=== PATIENT | female | born 1950 | race Caucasian/White ===

== ENCOUNTER → 2017-07-06 | Outpatient (CLI) | payer MEDICARE, MEDICAID ==
[~2017-07-06] MED LIST: ACYCLOVIR 400400 M1 PO; AVAPRO; BENTYL 20 MG TA20 M1 PO; CELEBREX50 MG PO; CIPROFLOXACIN500 M1 PO; CIPROFLOXACIN500 M3 PO; COZAAR 25 MG TA25 M2 PO; DIFLUCAN150 MG PO; FLAGYL 250 MG250 MG PO; FLAGYL500 MG PO; GLUCOPHAGE500 MG PO; LIDODERM 5%1 PATCH TOP; MEDROL DOSPAK21 TA1 PO; NEURONTIN 300300 M1 PO; NORCO 5-325 TA1 EAC1 PO; NORCO 5-325 TA1 EACH PO; NORCO 7.5-3251 EACH PO; OMEPRAZOLE; OMEPRAZOLE 20 M20 M1 PO; PHENERGAN 25 MG25 M1; RELAFEN500 MG PO; ROBAXIN 750 MG750 M1 PO; SILVADENE20 GM TP; TRAMADOL 50 MG50 MG PO; ULTRAM 50MG TAB50 MG PO; VISTARIL 25 MG25 M1 OR; ZOFRAN 4 MG ORAL4 MG PO; ZOFRAN4 MG PO; [UNRECOGNIZED DRUG - OTHER]; [UNRECOGNIZED DRUG - REMARK]
== END ==
LOC: M.RAD 05-24 16:58
DX: Z12.31 Encounter for screening mammogram for malignant neoplasm of breast (principal); M85.89 Other specified disorders of bone density and structure, multiple sites; Z78.0 Asymptomatic menopausal state; I25.10 Atherosclerotic heart disease of native coronary artery without angina pectoris

== ENCOUNTER 2017-09-23 09:43 | Emergency (ER) | payer MEDICARE, MEDICAID ==
[~2017-09-23] VITALS: Ht 162.6 cm; Wt 86.2 kg
[~2017-09-23 09:43] MED LIST changes: -PHENERGAN 25 MG25 M1; -ROBAXIN 750 MG750 M1 PO
[2017-09-23 10:43] LABS: ABSOLUTE EOSINOPHILS 0.1 thou/uL (0.0-0.7); ABSOLUTE LYMPHOCYTES 1.2 thou/uL (0.8-5.3); ABSOLUTE MONOCYTES 0.3 thou/uL (0.0-1.2); ABSOLUTE NEUTROPHILS 1.6 thou/uL (1.6-8.1); BASOPHILS 1.5 %; EOSINOPHILS 2.6 %; HEMATOCRIT 23.1 % (37.0-47.0); LYMPHOCYTES 38.6 %; MCH 18.8 pg (26.0-34.0); MCHC 28.6 g/dL (28.0-37.0); MONOCYTES 8.4 %; MPV 9.2 fl. (7.2-11.1); NUCLEATED RBCS 0 /100WBC; PLATELET COUNT* 142 thou/uL (150-400); POLYS 48.9 %; RBC 3.51 mil/uL (4.20-5.00); RDW-CV 19.8 % (10.5-14.5); WBC 3.2 thou/uL (4.0-11.0)
[2017-09-23 10:49] LABS: HEMOGLOBIN 6.6 gm/dL (12.0-15.0)
[2017-09-23 10:51] LABS: CALCIUM 8.5 mg/dL (8.5-10.1); CREATININE 0.7 mg/dL (0.6-1.3); POTASSIUM 4.1 mmol/L (3.5-5.1)
[2017-09-23 10:56] LABS: ALBUMIN 2.9 g/dL (3.4-5.0); TOTAL BILIRUBIN 0.8 mg/dL (<0.1-1.0); TOTAL PROTEIN 6.3 g/dL (6.4-8.2)
[2017-09-23 11:20] LABS: ANISOCYTOSIS 2+; HYPOCHROMASIA 2+; MICROCYTES 2+; OVALOCYTES 1+; PLATELET ESTIMATE ADEQUATE
[2017-09-23 11:21] LABS: POIKILOCYTOSIS 2+; TARGET CELLS Occasional
[2017-09-23 12:40] VITALS: BP 143/78
== END 2017-09-23 12:43 | disposition home or self-care (01) ==
LOC: M.ERS 09:43
PROVIDERS: Physician Assistant
DX: D64.9 Anemia, unspecified (principal); E11.9 Type 2 diabetes mellitus without complications; Z90.49 Acquired absence of other specified parts of digestive tract; Z86.19 Personal history of other infectious and parasitic diseases

== ENCOUNTER → 2017-09-26 | Outpatient (CLI) | payer MEDICARE, MEDICAID ==
[~2017-09-26] MED LIST changes: +PHENERGAN 25 MG25 M1; +ROBAXIN 750 MG750 M1 PO
[2017-09-26 09:44] VITALS: BP 146/82; BP 148/73; BP 158/88
[2017-09-26 11:42] VITALS: BP 142/68; BP 154/78; BP 158/88; BP 176/82
--- NOTE | 2017-09-26 14:44 | NUR ---
ARRIVED AMBULATORY. MADE SELF COMFORTABLE IN RELCINER. DENIES BEING SYMPTOMATIC. 2 UNITS PRBC TRANSFUSION COMPLETED AND TOLERATED WELL. DENIES QUESTIONS OR NEEDS AT DISCHARGE.
== END ==
LOC: M.LAB 09-23 09:00 → M.INFUS 09-23 09:00 → EDSTATUS 09-23 09:00 → M.INFUS 07:54
DX: D64.9 Anemia, unspecified (principal)

== ENCOUNTER 2017-10-03 10:28 | Emergency (ER) | payer MEDICARE, MEDICAID ==
[~2017-10-03] VITALS: Ht 165.1 cm; Wt 86.2 kg
[~2017-10-03 10:28] MED LIST changes: -PHENERGAN 25 MG25 M1; -ROBAXIN 750 MG750 M1 PO
[2017-10-03 10:39] LABS: URINE BILIRUBIN NEGATIVE (Negative); URINE BLOOD TRACE (Negative); URINE CLARITY CLEAR; URINE COLOR YELLOW; URINE GLUCOSE-RANDOM NEGATIVE (Negative); URINE KETONES NEGATIVE (Negative); URINE LEUKOCYTES-REFLEX 1+ (Negative); URINE NITRITE-REFLEX NEGATIVE (Negative); URINE PROTEIN NEGATIVE (Negative)
[2017-10-03] MEDS ORDERED: PHENERGAN 25 MG25 M1 (10:40)
[2017-10-03 10:48] LABS: BACTERIA-REFLEX 1-9 Few /HPF (None Seen); CASTS None Seen /LPF (None Seen); CRYSTALS None Seen /LPF (None Seen); MUCUS 0-3 Light strn/LPF (None Seen); SQUAMOUS 4-10 Moderate /LPF (0-3); URINE RBC 0-2 Rare /HPF (0-2); URINE WBC-REFLEX 0-5 Rare /HPF (0-5)
[2017-10-03 11:16] LABS: ABSOLUTE EOSINOPHILS 0.1 thou/uL (0.0-0.7); ABSOLUTE MONOCYTES 0.2 thou/uL (0.0-1.2); ABSOLUTE NEUTROPHILS 1.4 thou/uL (1.6-8.1); BASOPHILS 1.6 %; HEMATOCRIT 29.7 % (37.0-47.0); HEMOGLOBIN 9.2 gm/dL (12.0-15.0); LYMPHOCYTES 36.1 %; MCH 21.9 pg (26.0-34.0); MCHC 30.9 g/dL (28.0-37.0); MPV 8.6 fl. (7.2-11.1); NUCLEATED RBCS 0 /100WBC; PLATELET COUNT* 140 thou/uL (150-400); POLYS 51.3 %; RBC 4.19 mil/uL (4.20-5.00); RDW-CV 26.2 % (10.5-14.5); WBC 2.7 thou/uL (4.0-11.0)
[2017-10-03 11:27] LABS: ANION GAP 2 mmol/L (7-16); BUN 5 mg/dL (7-18); CALCIUM 8.7 mg/dL (8.5-10.1); CHLORIDE 103 mmol/L (98-107); CO2 33 mmol/L (21-32); CREATININE 0.6 mg/dL (0.6-1.3); GLUCOSE 121 mg/dL (70-99); POTASSIUM 4.1 mmol/L (3.5-5.1); SODIUM 138 mmol/L (136-145)
[2017-10-03 11:34] LABS: ALBUMIN 2.9 g/dL (3.4-5.0); ALKALINE PHOSPHATASE 152 U/L (46-116); SGOT 60 U/L (15-37); SGPT 45 U/L (30-65); TOTAL BILIRUBIN 1.3 mg/dL (<0.1-1.0); TOTAL PROTEIN 6.3 g/dL (6.4-8.2); TROPONIN-I LEVEL <0.06 ng/mL (<0.06)
[2017-10-03 11:55] LABS: HYPOCHROMASIA 3+; MICROCYTES 2+; PLATELET ESTIMATE ADEQUATE
[2017-10-03 11:56] LABS: ANISOCYTOSIS 3+; OVALOCYTES 2+
--- NOTE | 2017-10-03 15:00 | EKG ---
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: GAGE : 1950 Requested By: Leslie Lamar Order Number: [id number] MD: Krish Alvarado Measurements Intervals [place] Rate: 83 P: 23 FL: 163 QRS: 14 QRSD: 88 T: 24 QT: 381 QTc: 448 Interpretive Statements Sinus rhythm Compared to ECG 10/09/2016 15:34:51 Myocardial infarct finding no longer present T-wave abnormality no longer present Electronically Signed On 10-03-2017 15:00:42 CDT by Krish Alvarado [email or web address] <ELECTRONICALLY SIGNED> By: Krish Alvarado MD, [facility] 10/03/17 1500 1054 1054 Krish Alvarado MD, FACC /EPI
[2017-10-03] MEDS ORDERED: ROBAXIN 750 MG750 M1 PO (15:39)
[2017-10-03 15:49] VITALS: BP 152/71
== END 2017-10-03 15:50 | disposition home or self-care (01) ==
LOC: M.ERS 10:28
PROVIDERS: Nurse Practitioner Family
DX: S29.012A Strain of muscle and tendon of back wall of thorax, initial encounter (principal); E11.9 Type 2 diabetes mellitus without complications; Z86.2 Personal history of diseases of the blood and blood-forming organs and certain disorders involving the immune mechanism; Z90.49 Acquired absence of other specified parts of digestive tract; X58.XXXA Exposure to other specified factors, initial encounter; Y93.89 Activity, other specified; Y92.89 Other specified places as the place of occurrence of the external cause; Y99.8 Other external cause status

== ENCOUNTER → 2017-10-12 | Outpatient (CLI) | payer MEDICARE, MEDICAID ==
[~2017-10-12] MED LIST changes: +PHENERGAN 25 MG25 M1; +ROBAXIN 750 MG750 M1 PO
[2017-10-12 12:36] LABS: ALBUMIN 2.7 g/dL (3.4-5.0); CALCIUM 8.1 mg/dL (8.5-10.1); CREATININE 0.6 mg/dL (0.6-1.3); TOTAL BILIRUBIN 1.8 mg/dL (<0.1-1.0); TOTAL PROTEIN 5.8 g/dL (6.4-8.2)
== END ==
LOC: M.LAB 11:58 → M.CT 13:30
PROVIDERS: Family Medicine
DX: K57.30 Diverticulosis of large intestine without perforation or abscess without bleeding (principal); D25.9 Leiomyoma of uterus, unspecified; K74.69 Other cirrhosis of liver; R18.8 Other ascites

== ENCOUNTER → 2017-10-18 | Outpatient (CLI) | payer MEDICARE, MEDICAID | LOC: M.CT 10:21 | DX: I25.10 Atherosclerotic heart disease of native coronary artery without angina pectoris (principal); J98.11 Atelectasis; E11.9 Type 2 diabetes mellitus without complications ==

== ENCOUNTER → 2017-10-24 | Outpatient (CLI) | payer MEDICARE, MEDICAID | LOC: M.ULTRA 09:09 | DX: K44.9 Diaphragmatic hernia without obstruction or gangrene (principal); E11.9 Type 2 diabetes mellitus without complications ==

== ENCOUNTER 2017-11-11 21:47 | Emergency (ER) | payer MEDICARE, MEDICAID ==
[~2017-11-11] VITALS: Ht 165.1 cm; Wt 88.5 kg
[2017-11-11] MEDS ORDERED: NORCO 5-325 TA1 EACH PO (23:11)
[2017-11-11 23:22] VITALS: BP 159/64
== END 2017-11-11 23:29 | disposition home or self-care (01) ==
LOC: M.ERS 21:47
DX: S20.212A Contusion of left front wall of thorax, initial encounter (principal); E11.9 Type 2 diabetes mellitus without complications; Z86.2 Personal history of diseases of the blood and blood-forming organs and certain disorders involving the immune mechanism; Z90.49 Acquired absence of other specified parts of digestive tract; W18.39XA Other fall on same level, initial encounter; Y93.89 Activity, other specified; Y92.89 Other specified places as the place of occurrence of the external cause; Y99.8 Other external cause status

== ENCOUNTER 2017-12-31 13:29 | Emergency (ER) | payer MEDICARE, MEDICAID ==
[~2017-12-31] VITALS: Ht 165.1 cm; Wt 86.2 kg
[2017-12-31 14:09] LABS: ABSOLUTE LYMPHOCYTES 0.9 thou/uL (0.8-5.3); ABSOLUTE MONOCYTES 0.3 thou/uL (0.0-1.2); ABSOLUTE NEUTROPHILS 3.1 thou/uL (1.6-8.1); BASOPHILS 0.7 %; EOSINOPHILS 0.3 %; HEMATOCRIT 26.9 % (37.0-47.0); HEMOGLOBIN 8.3 gm/dL (12.0-15.0); LYMPHOCYTES 20.1 %; MCHC 30.7 g/dL (28.0-37.0); MCV 71.7 fL (80.0-100.0); MONOCYTES 6.7 %; MPV 9.5 fl. (7.2-11.1); NUCLEATED RBCS 0 /100WBC; PLATELET COUNT* 141 thou/uL (150-400); POLYS 72.2 %; RBC 3.75 mil/uL (4.20-5.00); RDW-CV 23.2 % (10.5-14.5); WBC 4.3 thou/uL (4.0-11.0)
[2017-12-31 14:14] LABS: ANION GAP 7 mmol/L (7-16); BUN 7 mg/dL (7-18); CHLORIDE 100 mmol/L (98-107); CO2 26 mmol/L (21-32); CREATININE 0.6 mg/dL (0.6-1.3); GLUCOSE 138 mg/dL (70-99); POTASSIUM 4.2 mmol/L (3.5-5.1); SODIUM 133 mmol/L (136-145)
[2017-12-31 14:22] LABS: ALBUMIN 2.8 g/dL (3.4-5.0); ALKALINE PHOSPHATASE 120 U/L (46-116); SGOT 55 U/L (15-37); SGPT 44 U/L (30-65); TOTAL BILIRUBIN 0.8 mg/dL (<0.1-1.0); TROPONIN-I LEVEL <0.06 ng/mL (<0.06)
[2017-12-31 14:29] LABS: PLATELET ESTIMATE DECREASED
[2017-12-31 14:30] LABS: ANISOCYTOSIS 2+; HYPOCHROMASIA 2+; MICROCYTES 2+
[2017-12-31] MEDS ORDERED: NORCO 5-325 TA1 EACH PO (16:11)
[2017-12-31 16:26] VITALS: BP 138/64
--- NOTE | 2018-01-02 10:03 | EKG ---
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: [place] : 1950 Requested By: Annalisa Almaguer Order Number: [id number] MD: Ford Jimenez Measurements Intervals [place] Rate: 88 P: 41 VT: 159 QRS: 12 QRSD: 91 T: 27 QT: 379 QTc: 459 Interpretive Statements Sinus rhythm septal infarct, old Baseline wander in lead(s) V1,V6 Compared to ECG 10/03/2017 10:54:01 Myocardial infarct finding still present Electronically Signed On 01-02-2018 10:02:57 RESIDENTIAL THERAPIST by Ford Jimenez [email or web address] <ELECTRONICALLY SIGNED> By: Ford Jimenez MD, FACC 01/02/18 1002 1404 1404 Ford Jimenez MD, [facility] /EPI
== END 2017-12-31 16:26 | disposition home or self-care (01) ==
LOC: M.ERS 13:29
PROVIDERS: Physician Assistant
DX: R10.32 Left lower quadrant pain (principal); D64.9 Anemia, unspecified; E11.9 Type 2 diabetes mellitus without complications; Z90.49 Acquired absence of other specified parts of digestive tract

== ENCOUNTER 2018-07-05 08:36 | Emergency (ER) | payer MEDICARE, MEDICAID ==
[~2018-07-05] VITALS: Ht 165.1 cm; Wt 88.5 kg
[2018-07-05] MEDS ORDERED: PHENERGAN 25 MG25 M1 PO (08:46)
[2018-07-05 09:13] LABS: ABSOLUTE EOSINOPHILS 0.1 thou/uL (0.0-0.7); ABSOLUTE LYMPHOCYTES 1.2 thou/uL (0.8-5.3); ABSOLUTE MONOCYTES 0.3 thou/uL (0.0-1.2); ABSOLUTE NEUTROPHILS 1.2 thou/uL (1.6-8.1); BASOPHILS 1.2 %; EOSINOPHILS 2.1 %; HEMATOCRIT 20.9 % (37.0-47.0); LYMPHOCYTES 42.6 %; MCH 19.5 pg (26.0-34.0); MCHC 29.2 g/dL (28.0-37.0); MCV 66.7 fL (80.0-100.0); MONOCYTES 10.2 %; MPV 8.2 fl. (7.2-11.1); NUCLEATED RBCS 0 /100WBC; PLATELET COUNT* 148 thou/uL (150-400); POLYS 43.9 %; RBC 3.13 mil/uL (4.20-5.00); RDW-CV 20.4 % (10.5-14.5); WBC 2.8 thou/uL (4.0-11.0)
[2018-07-05 09:20] LABS: HEMOGLOBIN 6.1 gm/dL (12.0-15.0)
[2018-07-05 09:22] LABS: ANION GAP 8 mmol/L (7-16); BUN 7 mg/dL (7-18); CALCIUM 8.5 mg/dL (8.5-10.1); CHLORIDE 104 mmol/L (98-107); CO2 27 mmol/L (21-32); CREATININE 0.6 mg/dL (0.6-1.3); GLUCOSE 125 mg/dL (70-99); POTASSIUM 4.1 mmol/L (3.5-5.1); SODIUM 139 mmol/L (136-145)
[2018-07-05 09:31] LABS: ALBUMIN 2.8 g/dL (3.4-5.0); ALKALINE PHOSPHATASE 125 U/L (46-116); SGOT 35 U/L (15-37); SGPT 31 U/L (30-65); TOTAL BILIRUBIN 0.6 mg/dL (<0.1-1.0); TROPONIN-I LEVEL <0.06 ng/mL (<0.06)
[2018-07-05 09:59] LABS: URINE BILIRUBIN NEGATIVE (Negative); URINE BLOOD TRACE (Negative); URINE CLARITY CLEAR; URINE COLOR YELLOW; URINE GLUCOSE-RANDOM NEGATIVE (Negative); URINE KETONES NEGATIVE (Negative); URINE NITRITE-REFLEX NEGATIVE (Negative); URINE PROTEIN NEGATIVE (Negative); URINE UROBILINOGEN 0.2 E.U./dl (0.2-1.0)
[2018-07-05 10:02] LABS: URINE LEUKOCYTES-REFLEX 2+ (Negative)
[2018-07-05 10:06] LABS: ANISOCYTOSIS 3+; HYPOCHROMASIA 2+
[2018-07-05 10:08] LABS: BACTERIA-REFLEX 1-9 Few /HPF (None Seen); CASTS None Seen /LPF (None Seen); CRYSTALS None Seen /LPF (None Seen); MUCUS None Seen strn/LPF (None Seen); SQUAMOUS >10 Many /LPF (0-3); URINE RBC 0-2 Rare /HPF (0-2); URINE WBC-REFLEX 6-15 Few /HPF (0-5)
[2018-07-05 10:22] LABS: APTT 24.9 Seconds (25.0-31.3); INR 1.2; PROTIME 11.9 Seconds (9.20-11.50)
--- NOTE | 2018-07-05 14:41 | EKG ---
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
[2018-07-05 14:58] LABS: HEMATOCRIT 23.5 % (37.0-47.0); HEMOGLOBIN 7.2 gm/dL (12.0-15.0)
[2018-07-05 16:50] VITALS: BP 154/78
== END 2018-07-05 16:52 | disposition home or self-care (01) ==
LOC: M.ERS 08:36
PROVIDERS: Personal Emergency Response Attendant
DX: D64.9 Anemia, unspecified (principal); D61.818 Other pancytopenia; E11.9 Type 2 diabetes mellitus without complications; K74.60 Unspecified cirrhosis of liver; Z90.49 Acquired absence of other specified parts of digestive tract

== ENCOUNTER → 2018-07-12 | Outpatient (CLI) | payer MEDICARE, MEDICAID ==
[~2018-07-12] MED LIST changes: +PHENERGAN 25 MG25 M1 PO
== END ==
LOC: M.ULTRA 07-04 12:41
DX: E04.1 Nontoxic single thyroid nodule (principal); R10.9 Unspecified abdominal pain; Z90.49 Acquired absence of other specified parts of digestive tract

== ENCOUNTER 2018-07-27 11:33 | Emergency (ER) | payer MEDICARE, MEDICAID ==
[~2018-07-27] VITALS: Ht 165.1 cm; Wt 89.8 kg
[2018-07-27 12:41] LABS: ABSOLUTE EOSINOPHILS 0.1 thou/uL (0.0-0.7); ABSOLUTE LYMPHOCYTES 0.5 thou/uL (0.8-5.3); ABSOLUTE MONOCYTES 0.3 thou/uL (0.0-1.2); ABSOLUTE NEUTROPHILS 1.8 thou/uL (1.6-8.1); BASOPHILS 1.2 %; EOSINOPHILS 2.1 %; HEMATOCRIT 30.2 % (37.0-47.0); HEMOGLOBIN 9.1 gm/dL (12.0-15.0); LYMPHOCYTES 19.8 %; MCH 23.3 pg (26.0-34.0); MCHC 30.3 g/dL (28.0-37.0); MCV 76.9 fL (80.0-100.0); MONOCYTES 9.4 %; MPV 8.6 fl. (7.2-11.1); NUCLEATED RBCS 0 /100WBC; PLATELET COUNT* 126 thou/uL (150-400); POLYS 67.5 %; RBC 3.93 mil/uL (4.20-5.00); RDW-CV 33.5 % (10.5-14.5); WBC 2.7 thou/uL (4.0-11.0)
[2018-07-27 12:51] LABS: URINE BLOOD NEGATIVE (Negative); URINE CLARITY CLEAR; URINE COLOR DARK YELLOW; URINE GLUCOSE-RANDOM TRACE (Negative); URINE KETONES NEGATIVE (Negative); URINE NITRITE-REFLEX NEGATIVE (Negative); URINE PROTEIN TRACE (Negative); URINE UROBILINOGEN >= 8.0 E.U./dl (0.2-1.0)
[2018-07-27 12:55] LABS: ICTOTEST (BILI CONFIRMATORY) Negative (Negative); URINE BILIRUBIN 1+ (Negative); URINE LEUKOCYTES-REFLEX 3+ (Negative)
[2018-07-27 12:56] LABS: SQUAMOUS 4-10 Moderate /LPF (0-3)
[2018-07-27 12:57] LABS: BACTERIA-REFLEX 1-9 Few /HPF (None Seen); CASTS None Seen /LPF (None Seen); CRYSTALS None Seen /LPF (None Seen); URINE RBC 0-2 Rare /HPF (0-2); URINE WBC-REFLEX 6-15 Few /HPF (0-5)
[2018-07-27 13:00] LABS: MUCUS 4-6 Moderate strn/LPF (None Seen)
[2018-07-27 13:06] LABS: OVALOCYTES 1+; SCHISTOCYTES 1+; TEARDROPS 1+
[2018-07-27 13:07] LABS: HYPOCHROMASIA 2+; MICROCYTES 2+
[2018-07-27 13:08] LABS: ANION GAP 5 mmol/L (7-16); BUN 7 mg/dL (7-18); CALCIUM 8.7 mg/dL (8.5-10.1); CHLORIDE 103 mmol/L (98-107); CO2 30 mmol/L (21-32); CREATININE 0.7 mg/dL (0.6-1.3); GLUCOSE 169 mg/dL (70-99); PLATELET ESTIMATE DECREASED; POLYCHROMASIA 1+; POTASSIUM 4.3 mmol/L (3.5-5.1); SODIUM 138 mmol/L (136-145)
[2018-07-27 13:17] LABS: ALKALINE PHOSPHATASE 130 U/L (46-116); LIPASE 75 U/L (73-393); SGOT 43 U/L (15-37); SGPT 33 U/L (30-65); TOTAL BILIRUBIN 1.2 mg/dL (<0.1-1.0); TOTAL PROTEIN 6.3 g/dL (6.4-8.2); TROPONIN-I LEVEL <0.06 ng/mL (<0.06)
--- NOTE | 2018-07-27 15:44 | EKG ---
[place] [address] ELECTROCARDIOGRAM REPORT Name: BETHLENYBLAYNE Bowman Room: [facility]#: [id number] Admission: 07/27/18 Attend Phys: Discharge: Date of : 50 Report #: [id number] THIS REPORT FOR: //name// [facility] ED Test Date: 2018-07-27 Test Time: 12:40:10 Pat Name: BLAYNE BRIDGES Department: Room: Gender: F Rn Acute Care: : 1950 Requested By: Lissa Ashley Order Number: [id number] MD: Ford Jimenez Measurements Intervals [place] Rate: 76 P: 15 MT: 167 QRS: 2 QRSD: 92 T: 33 QT: 392 QTc: 441 Interpretive Statements Sinus rhythm Compared to ECG 07/05/2018 09:21:32 No significant changes Electronically Signed On 07-27-2018 15:43:55 CDT by Ford Jimenez [email or web address] <ELECTRONICALLY SIGNED> By: Ford Jimenez MD, [facility] 07/27/18 1543 1240 1240 Ford Jimenez MD, FACC /EPI
[2018-07-27] MEDS ORDERED: CIPRO500 MG PO (15:49)
[2018-07-27] MEDS ORDERED: FLAGYL500 M1 PO (15:49)
[2018-07-27] MEDS ORDERED: HYDROCODONE-AP1 EAC6 PO (15:51)
[2018-07-27] MEDS ORDERED: ONDANSETRON HCL4 M2 PO (15:55)
[2018-07-27 16:11] VITALS: BP 166/67
== END 2018-07-27 16:13 | disposition home or self-care (01) ==
LOC: M.ERS 11:33
PROVIDERS: Nurse Practitioner Family
DX: K57.32 Diverticulitis of large intestine without perforation or abscess without bleeding (principal); I31.3 Pericardial effusion (noninflammatory); E11.9 Type 2 diabetes mellitus without complications; Z90.49 Acquired absence of other specified parts of digestive tract

== ENCOUNTER 2018-08-08 17:02 | Emergency (ER) | payer MEDICARE, MEDICAID ==
[~2018-08-08] VITALS: Ht 165.1 cm; Wt 89.8 kg
[~2018-08-08 17:02] MED LIST changes: +CIPRO500 MG PO; +FLAGYL500 M1 PO; +HYDROCODONE-AP1 EAC6 PO; +ONDANSETRON HCL4 M2 PO
[2018-08-08 17:38] LABS: ABSOLUTE EOSINOPHILS 0.1 thou/uL (0.0-0.7); ABSOLUTE LYMPHOCYTES 0.9 thou/uL (0.8-5.3); ABSOLUTE MONOCYTES 0.5 thou/uL (0.0-1.2); ABSOLUTE NEUTROPHILS 3.4 thou/uL (1.6-8.1); BASOPHILS 0.4 %; EOSINOPHILS 1.1 %; HEMATOCRIT 30.7 % (37.0-47.0); HEMOGLOBIN 9.7 gm/dL (12.0-15.0); LYMPHOCYTES 18.8 %; MCH 26.7 pg (26.0-34.0); MCHC 31.6 g/dL (28.0-37.0); MCV 84.7 fL (80.0-100.0); MONOCYTES 10.5 %; MPV 8.5 fl. (7.2-11.1); NUCLEATED RBCS 0 /100WBC; PLATELET COUNT* 134 thou/uL (150-400); POLYS 69.2 %; RBC 3.63 mil/uL (4.20-5.00); RDW-CV 33.9 % (10.5-14.5); WBC 4.9 thou/uL (4.0-11.0)
[2018-08-08 17:46] LABS: ANION GAP 6 mmol/L (7-16); BUN 8 mg/dL (7-18); CALCIUM 7.9 mg/dL (8.5-10.1); CHLORIDE 108 mmol/L (98-107); CO2 30 mmol/L (21-32); CREATININE 0.8 mg/dL (0.6-1.3); GLUCOSE 150 mg/dL (70-99); POTASSIUM 3.6 mmol/L (3.5-5.1); SODIUM 144 mmol/L (136-145)
[2018-08-08 17:55] LABS: ALBUMIN 2.6 g/dL (3.4-5.0); ALKALINE PHOSPHATASE 80 U/L (46-116); LIPASE 48 U/L (73-393); SGOT 33 U/L (15-37); SGPT 29 U/L (30-65); TOTAL BILIRUBIN 0.5 mg/dL (<0.1-1.0); TOTAL PROTEIN 5.9 g/dL (6.4-8.2); TROPONIN-I LEVEL <0.06 ng/mL (<0.06)
[2018-08-08 17:59] LABS: ANISOCYTOSIS 1+
[2018-08-08 18:48] LABS: URINE BILIRUBIN NEGATIVE (Negative); URINE BLOOD TRACE (Negative); URINE CLARITY CLEAR; URINE COLOR YELLOW; URINE GLUCOSE-RANDOM NEGATIVE (Negative); URINE KETONES NEGATIVE (Negative); URINE LEUKOCYTES-REFLEX NEGATIVE (Negative); URINE NITRITE-REFLEX NEGATIVE (Negative); URINE PROTEIN NEGATIVE (Negative); URINE UROBILINOGEN 0.2 E.U./dl (0.2-1.0)
[2018-08-08] MEDS ORDERED: FLAGYL500 M1 PO (19:12)
[2018-08-08] MEDS ORDERED: CIPRO500 MG PO (19:12)
[2018-08-08 19:24] VITALS: BP 160/71
--- NOTE | 2018-08-09 15:52 | EKG ---
[place] [address] ELECTROCARDIOGRAM REPORT Name: BLAYNE BRIDGES Room: [facility]#: [id number] Admission: 08/08/18 Attend Phys: Discharge: 08/08/18 Date of : 50 Report #: [id number] THIS REPORT FOR: //name// [facility] ED Test Date: 2018-08-08 Test Time: 17:41:49 Pat Name: BLAYNE BRIDGES Department: Room: Gender: F [place]: [place] : 1950 Requested By: Memo Chery Order Number: [id number] MD: Krish Alvarado Measurements Intervals [place] Rate: 90 P: 11 OR: 166 QRS: 8 QRSD: 90 T: 25 QT: 368 QTc: 451 Interpretive Statements Sinus rhythm Compared to ECG 07/27/2018 12:40:10 No significant changes Electronically Signed On 08-09-2018 15:52:29 CDT by Krish Alvarado [email or web address] <ELECTRONICALLY SIGNED> By: Krish Alvarado MD, [facility] 08/09/18 1552 1741 40 Krish Alvarado MD, FACC /EPI
== END 2018-08-08 19:27 | disposition left against medical advice (07) ==
LOC: M.ERS 17:02
PROVIDERS: Physician Assistant
DX: K57.32 Diverticulitis of large intestine without perforation or abscess without bleeding (principal); R19.7 Diarrhea, unspecified; E11.9 Type 2 diabetes mellitus without complications; K74.60 Unspecified cirrhosis of liver; Z90.49 Acquired absence of other specified parts of digestive tract; Z86.2 Personal history of diseases of the blood and blood-forming organs and certain disorders involving the immune mechanism

== ENCOUNTER 2018-11-09 15:56 | Emergency (ER) | payer MEDICARE, MEDICAID ==
[~2018-11-09] VITALS: Ht 165.1 cm; Wt 81.7 kg
[2018-11-09 16:42] LABS: ABSOLUTE LYMPHOCYTES 0.4 thou/uL (0.8-5.3); ABSOLUTE MONOCYTES 0.4 thou/uL (0.0-1.2); BASOPHILS 0.3 %; EOSINOPHILS 0.5 %; HEMATOCRIT 33.3 % (37.0-47.0); HEMOGLOBIN 11.3 gm/dL (12.0-15.0); LYMPHOCYTES 10.5 %; MCHC 33.9 g/dL (28.0-37.0); MCV 88.5 fL (80.0-100.0); MONOCYTES 10.9 %; MPV 8.4 fl. (7.2-11.1); NUCLEATED RBCS 0 /100WBC; PLATELET COUNT* 87 thou/uL (150-400); POLYS 77.8 %; RBC 3.76 mil/uL (4.20-5.00); RDW-CV 16.1 % (10.5-14.5); WBC 3.8 thou/uL (4.0-11.0)
[2018-11-09 16:49] LABS: CALCIUM 7.8 mg/dL (8.5-10.1); CREATININE 0.8 mg/dL (0.6-1.3); POTASSIUM 3.6 mmol/L (3.5-5.1)
[2018-11-09 16:54] LABS: ALBUMIN 2.6 g/dL (3.4-5.0); TOTAL BILIRUBIN 0.6 mg/dL (<0.1-1.0); TOTAL PROTEIN 5.7 g/dL (6.4-8.2)
[2018-11-09] MEDS ORDERED: FLAGYL500 M1 PO (18:30)
[2018-11-09] MEDS ORDERED: CARAFATE 1 GM TA1 GM PO (18:30)
[2018-11-09] MEDS ORDERED: CIPROFLOXACIN500 M1 PO (18:30)
[2018-11-09 19:01] VITALS: BP 139/82
--- NOTE | 2018-11-10 12:29 | EKG ---
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: : 1950 Requested By: Annalisa Belcher Order Number: [id number] Katarina MD: Krish Alvarado Measurements Intervals [place] Rate: 116 P: -37 PA: 157 QRS: 8 QRSD: 90 T: 224 QT: 383 QTc: 533 Interpretive Statements Sinus tachycardia Anterior infarct, old Borderline repol abnrm, inferolateral leads Prolonged QT interval Compared to ECG 08/08/2018 17:41:49 Myocardial infarct finding still present Prolonged QT interval now present Sinus rate has increased Electronically Signed On 11-10-2018 12:28:46 CDT by Krish Alvarado [email or web address] <ELECTRONICALLY SIGNED> By: Krish Alvarado MD, [facility] 11/10/18 1228 1602 1602 Krish Alvarado MD, [facility] /EPI
== END 2018-11-09 19:02 | disposition home or self-care (01) ==
LOC: M.ERS 15:56
PROVIDERS: Personal Emergency Response Attendant
DX: K29.80 Duodenitis without bleeding (principal); E11.9 Type 2 diabetes mellitus without complications; Z90.49 Acquired absence of other specified parts of digestive tract; Z86.2 Personal history of diseases of the blood and blood-forming organs and certain disorders involving the immune mechanism

== ENCOUNTER → 2019-01-03 | Outpatient (CLI) | payer MEDICARE, MEDICAID ==
[~2019-01-03] MED LIST changes: +CARAFATE 1 GM TA1 GM PO
[2019-01-05 14:07] LABS: HCV QUANT BY PCR 2180000 IU/mL (())
== END ==
LOC: M.LAB 13:18
PROVIDERS: Internal Medicine Gastroenterology
DX: K74.60 Unspecified cirrhosis of liver (principal)